=== PATIENT | female | born 1950 | race Caucasian/White ===

== ENCOUNTER 2017-11-03 16:56 | Emergency (ER) | payer MEDICARE, OTHER ==
[~2017-11-03] VITALS: Ht 167.6 cm; Wt 90.7 kg
[~2017-11-03 16:56] MED LIST: LEVAQUIN500 MG PO; PREDNISONE20 MG PO; SYNTHROID125 MCG PO; TUSSIN DM COUG120 ML
[2017-11-03] MEDS ORDERED: CEFTRIAXONE SOD 1 GM VIAL IM ONE (17:30)
[2017-11-03] MEDS ORDERED: DEXAMETHASONE SOD PHOS 10 MG/1 ML VIAL INJ ONE (17:30)
[2017-11-03 17:42] VITALS: BP 185/88
== END 2017-11-03 17:30 | disposition home or self-care (01) ==
LOC: FSED 16:56
DX: R50.9 Fever, unspecified (principal); R05 Cough; J20.9 Acute bronchitis, unspecified; J00 Acute nasopharyngitis [common cold]
CPT/HCPCS: 83518; 99282; J0696

== ENCOUNTER 2018-11-05 18:18 | Emergency (ER) | payer MEDICARE, OTHER ==
[~2018-11-05] VITALS: Ht 165.1 cm; Wt 129.3 kg
[2018-11-05] MEDS ORDERED: ALBUTEROL/IPRATROPIUM 3 ML NEB NEB ONE (19:30)
[2018-11-05] MEDS ORDERED: AZITHROMYCIN250 MG PO (19:33)
[2018-11-05] MEDS ORDERED: PROAIR HFA INH8.5 GM INH (19:42)
[2018-11-05] MEDS ORDERED: CHERATUSSIN AC118 ML PO (19:44)
[2018-11-05] MEDS ORDERED: DEXAMETHASONE SOD PHOS 10 MG/1 ML VIAL IM ONE (19:45)
== END 2018-11-05 20:04 | disposition home or self-care (01) ==
LOC: FSED 18:18
DX: R05 Cough (principal); J02.9 Acute pharyngitis, unspecified; J98.01 Acute bronchospasm; H69.93 Unspecified Eustachian tube disorder, bilateral
CPT/HCPCS: 99283; J1100

== ENCOUNTER 2018-11-12 10:22 | Emergency (ER) | payer MEDICARE, OTHER ==
[~2018-11-12] VITALS: Ht 165.1 cm; Wt 129.3 kg
[~2018-11-12 10:22] MED LIST changes: +AZITHROMYCIN250 MG PO; +CHERATUSSIN AC118 ML PO; +PROAIR HFA INH8.5 GM INH
[2018-11-12] MEDS ORDERED: SODIUM CHLORIDE 0.9% 1000ML 1,000 ML IV STA (11:05)
[2018-11-12] MEDS ORDERED: DIPHENHYDRAMINE HCL INJ 50 MG/ML VIAL IV ONE (11:15)
[2018-11-12] MEDS ORDERED: MECLIZINE HCL 12.5 MG TAB PO ONE (11:15)
--- NOTE | 2018-11-12 11:57 | Diagnostic Imaging Report ---
Examination: CT head without contrast Clinical Indication: Dizziness. Tinnitus. Unsteady gait. Technique: Transaxial noncontrast images from the skull base through the vertex were obtained. Sagittal and coronal reformatted images were done. Dose modulation, iterative reconstruction, and/or weight based adjustment of the mA/kV was utilized to reduce the radiation dose to as low as reasonably achievable. Comparison: None. Findings: Scalp: No abnormalities. Bones: Intact. No fractures. No blastic or lytic lesions. Brain sulci: Appropriate for patient's age. Ventricles: Normal in size and configuration. No hydrocephalus. Extra-axial space: No abnormalities. Parenchyma: No masses, hemorrhage, or acute or chronic cortical based vascular insults. Suprasellar region: No abnormalities. Craniocervical junction: The foramen magnum is patent. No Chiari one malformation. Incidental findings: Partially visualized retention cyst in the left maxillary sinus. Mild inflammatory mucosal thickening of the right sphenoid sinus. Evidence of prior bilateral ethmoidectomies. Impression: No acute intracranial abnormality. Signed by: Dr. Lashonda Mcfarland M.D. on 11/12/2018 11:54 AM
[2018-11-12] MEDS ORDERED: METOCLOPRAMIDE HCL 10 MG/2ML VIAL IV ONE (12:00)
--- NOTE | 2018-11-12 12:32 | Diagnostic Imaging Report ---
EXAMINATION: CHEST SINGLE (PORTABLE) INDICATION: Vertigo, tinnitus COMPARISON: Report from chest radiograph from 09/19/2015, however the images are not available for review. FINDINGS: TUBES and LINES: None. LUNGS: There is a nodular opacity which projects over the right upper lung. No evidence of pneumonia or pulmonary edema. PLEURA: No pleural effusion or pneumothorax. HEART AND MEDIASTINUM: The cardiomediastinal silhouette is unremarkable. BONES AND SOFT TISSUES: No acute osseous lesion. Soft tissues are unremarkable. UPPER ABDOMEN: No free air under the diaphragm. IMPRESSION: No acute radiographic abnormality. Nodular opacity, which projects over the right upper lung. This could be within the overlying rib, however pulmonary nodule cannot be excluded by radiograph. Chest CT is suggested for further evaluation. Signed by: Dr. Yasmeen Sky MD on 11/12/2018 12:29 PM
[2018-11-12 12:37] LABS: BASOPHILS # (AUTO) 0.1 (0.0-0.1); BASOPHILS % 0.5 % (0.0-1.0); EOSINOPHILS # (AUTO) 0.2 (0.0-0.4); EOSINOPHILS % 2.5 % (0.0-6.0); HEMATOCRIT 44.6 % (34.2-44.1); HEMOGLOBIN 14.6 g/dL (12.0-16.0); LYMPHOCYTES # (AUTO) 2.1 (1.0-3.2); LYMPHOCYTES % 21.2 % (18.0-39.1); MEAN CORPUSCULAR HEMOGLOBIN 29.3 pg (28-32); MEAN CORPUSCULAR HGB CONC 32.7 g/dL (31-35); MEAN CORPUSCULAR VOLUME 89.4 fL (81-99); MONOCYTES # (AUTO) 0.8 (0.2-0.8); MONOCYTES % 7.8 % (4.4-11.3); NEUTROPHILS # (AUTO) 6.6 (2.1-6.9); NEUTROPHILS % 67.6 % (38.7-80.0); PLATELET COUNT 274 x10e3/uL (140-360); RED BLOOD COUNT 4.99 x10e6/uL (3.6-5.1); RED CELL DISTRIBUTION WIDTH 12.7 % (11.7-14.4)
[2018-11-12 12:47] LABS: INR 0.96; PROTHROMBIN TIME 13.3 seconds (11.9-14.5)
[2018-11-12 12:48] LABS: PARTIAL THROMBOPLASTIN TIME 35.3 seconds (23.8-35.5)
[2018-11-12 13:37] LABS: ALANINE AMINOTRANSFERASE 41 IU/L (0-55); ALBUMIN 3.5 g/dL (3.5-5.0); ALKALINE PHOSPHATASE 83 IU/L (40-150); ANION GAP 10.6 mmol/L (8-16); BLOOD UREA NITROGEN 11 mg/dL (7-26); BUN/CREATININE RATIO 15 (6-25); CALCIUM 9.4 mg/dL (8.4-10.2); CARBON DIOXIDE 29 mmol/L (22-29); CHLORIDE 102 mmol/L (98-107); CREATINE KINASE 173 IU/L (29-168); CREATININE, SERUM 0.72 mg/dL (0.57-1.11); EST GLOMERULAR FILTRATION RATE > 60 ML/MIN (60-); GLUCOSE 119 mg/dL (74-118); POTASSIUM 4.6 mmol/L (3.5-5.1); SODIUM 137 mmol/L (136-145)
[2018-11-12] MEDS ORDERED: DEXAMETHASONE 10MG/ML PF INJ IV ONE (14:00)
--- NOTE | 2018-11-12 14:50 | NUR ---
pt states she feels better
[2018-11-12 16:35] VITALS: BP 154/77
--- NOTE | 2018-11-12 16:57 | NUR ---
PT D/C FROM ER BUT STAYED WITH FAMILY WHO IS ALSO BEING SEEN IN THE ER
== END 2018-11-12 16:57 | disposition home or self-care (01) ==
LOC: ER 10:22
DX: H81.11 Benign paroxysmal vertigo, right ear (principal); R51 Headache; J01.30 Acute sphenoidal sinusitis, unspecified
CPT/HCPCS: 36415; 70450; 71045; 80053; 82550; 82553; 84484; 85025; 85610; 85730; 93005; 99284; J1200; J2765; J7030; J8597

== ENCOUNTER 2018-11-24 15:50 | Emergency (ER) | payer MEDICARE, OTHER ==
[~2018-11-24] VITALS: Ht 165.1 cm; Wt 129.3 kg
--- OUTSIDE RECORDS SUMMARY | 2018-11-24 15:52 | XMS REPORT ---
Author [facility] Address Unknown Phone Unavailable Care Team Providers Care Jd Edwards Developer Name Role Phone GAEL Beti FREDERICK Unavailable Unavailable Problems This patient has no known problems. Allergies, Adverse Reactions, Alerts This patient has no known allergies or adverse reactions. Medications This patient has no known medications. Results Test Description Test Time Test Comments Text Results Atomic Results Result Comments CHEST SINGLE (PORTABLE) 2018-11-12 12:21:00 [place] [id number] Patient Name: TRACY JOHNSON MR #: [id number] : 1950 Age/Sex: 68/F Req #: [id number] Adm Physician: Ordered by: NUBIA YOU NP Report #: [id number] Location: ER Room/Bed: Procedure: [id number] DX/CHEST SINGLE (PORTABLE) Exam Date: 11/12/18 Exam Time: 1137 REPORT STATUS: Signed EXAMINATION: CHEST SINGLE (PORTABLE) I NDICATION: Vertigo, tinnitus COMPARISON: Report from chest radiograph from 09/19/2015, however the images are not available for review. FINDINGS: TUBES and LINES: None. LUNGS: There is a nodular opacity which projects over the right upper lung. No evidence of pneumonia or pulmonary edema. PLEURA: No pleural effusion or pneumothorax. HEART AND MEDIASTINUM: The cardiomediastinal silhouette is unremarkable. BONES AND SOFT TISSUES: No acute osseous lesion. Soft tissues are unremarkable. UPPER ABDOMEN: No free air under the diaphragm. IMPRESSION: No acute radiographic abnormality. Nodular opacity, which projects over the right upper lung. This could be within the overlying rib, however pulmonary nodule cannot be excluded by radiograph. Chest CT is suggested for further evaluation. Signed by: Dr. Lisa Perkins MD on 11/12/2018 12:29 PM Dictated By: LISA PERKINS MD 122 Transcribed By: SABINE on 11/12/181228 COPY TO: NUBIA YOU NP CT BRAIN WO 2018-11-12 11:53:00 [place] [id number] Patient Name: TRACY JOHNSON MR #: [id number] : 1950 Age/Sex: 68/F Req #: [id number] Adm Physician: Ordered by: NUBIA YOU CHANGE ATTENDANT Report #: [id number] Location: ER Room/Bed: Procedure: [id number] CT/CT BRAIN WO Exam Date: 11/12/18 Exam Time: 1130 REPORT STATUS: Signed Examination: CT head without contrast Clinical Indication: Dizziness. Tinnitus. Unsteady gait. Technique: Transaxial noncontrast images from the skull base through the vertex were obtained. Sagittal and coronal reformatted images were done. Dose modulation, iterative reconstruction, and/or weight based adjustment of the mA/kV was utilized to reduce the radiation dose to as low as reasonably achievable. Comparison: None. Findings: Scalp: No abnormalities. Bones: Intact. No fractures. No blastic or lytic lesions. Brain sulci: Appropriate for patient's age. Ventricles: Normal in size and configuration. No hydrocephalus. Extra- axial space: No abnormalities. Parenchyma: No masses, hemorrhage, or acute or chronic cortical based vascular insults. Suprasellar region: No abnormalities. Craniocervical junction: The foramen magnum is patent. No Chiari one malformation. Incidental findings: Partially visualized retention cyst in the left maxillary sinus. Mild inflammatory mucosal thickening of the right sphenoid sinus. Evidence of prior bilateral ethmoidectomies. Impression: No acute intracranial abnormality. Signed by: Dr. Lashonda Mcfarland M.D. on 11/12/2018 11:54 AM Dictated By: LASHONDA KRISHNA MD 1152 Transcribed By: SABINE on 11/12/18 115 COPY TO: NUBIA YOU NP
== END 2018-11-24 16:37 | disposition home or self-care (01) ==
LOC: FSED 15:50
DX: R42 Dizziness and giddiness (principal); H81.11 Benign paroxysmal vertigo, right ear; J01.00 Acute maxillary sinusitis, unspecified
CPT/HCPCS: 99283

== ENCOUNTER 2019-02-19 19:38 | Emergency (ER) | payer MEDICARE, OTHER ==
[~2019-02-19] VITALS: Ht 167.6 cm; Wt 114.8 kg
[2019-02-19] MEDS ORDERED: CLINDAMYCIN PHOS 600 MG/ 4 ML VIAL IM ONE (20:30)
[2019-02-19] MEDS ORDERED: CLINDAMYCIN PHOS 600 MG/ 4 ML VIAL ONE (20:32)
--- NOTE | 2019-02-19 20:47 | Diagnostic Imaging Report ---
Foot complete CPT code: 55168 Indication: Injury with bleeding ^[id number] ^2019 Technique: A.P., oblique and lateral views of the left foot obtained. Comparison: None Findings: The area of injury is at the great toe. The bones are diffusely demineralized. Calcaneus is intact with small plantar posterior spurs. The midfoot is intact with mild degenerative changes. The metatarsals are intact. There are mild degenerative changes of the MTPs of digits 1 through 4. The great toe appears to have a nondisplaced fracture through the base of the distal phalanx, lateral aspect with extension to the IP joint. The remainder of the toe is intact. No joint dislocation. No periosteal new bone formation. No radiopaque foreign bodies in the soft tissues. IMPRESSION: Suspected nondisplaced fracture through the base of the distal phalanx of the first digit with extension to the IP joint. Toenail injury cannot be excluded. Recommend correlation with clinical exam findings. Signed by: Dr. Brandy Eaton MD on 02/19/2019 8:43 PM
== END 2019-02-19 20:57 | disposition home or self-care (01) ==
LOC: FSED 19:38
DX: L03.032 Cellulitis of left toe (principal); S90.112A Contusion of left great toe without damage to nail, initial encounter; W22.03XA Walked into furniture, initial encounter; Y92.008 Other place in unspecified non-institutional (private) residence as the place of occurrence of the external cause
CPT/HCPCS: 99283

== ENCOUNTER → 2020-11-23 | Outpatient (CLI) | payer MEDICARE, OTHER | LOC: MAMMO 13:09 | PROVIDERS: ATTEND Specialist | DX: Z12.31 Encounter for screening mammogram for malignant neoplasm of breast (principal); Z13.820 Encounter for screening for osteoporosis; Z78.0 Asymptomatic menopausal state | CPT/HCPCS: 77067; 77080 ==

== ENCOUNTER 2020-12-27 10:28 | Emergency (ER) | payer MEDICARE, OTHER ==
[~2020-12-27] VITALS: Ht 167.6 cm; Wt 128.4 kg
[2020-12-27] MEDS ORDERED: HYDRALAZINE HCL 20 MG/ML VIAL IV ONE (11:00)
[2020-12-27] MEDS ORDERED: HYDRALAZINE HCL 20 MG/ML VIAL ONE (11:08)
[2020-12-27] MEDS ORDERED: CLONIDINE HCL 0.1 MG TAB ONE (12:08)
[2020-12-27] MEDS ORDERED: CLONIDINE HCL 0.2 MG TAB PO ONE (12:15)
[2020-12-27 12:43] VITALS: BP 143/64
== END 2020-12-27 12:46 | disposition home or self-care (01) ==
LOC: FSED 11:00
DX: I10 Essential (primary) hypertension (principal); E03.9 Hypothyroidism, unspecified; E66.01 Morbid (severe) obesity due to excess calories
CPT/HCPCS: 70450; 80053; 82553; 84484; 85025; 99284; J0360

== ENCOUNTER → 2022-04-28 | Outpatient (CLI) | payer MEDICARE, OTHER | LOC: DX 08:58 | PROVIDERS: ATTEND Specialist | DX: Z12.31 Encounter for screening mammogram for malignant neoplasm of breast (principal); M85.88 Other specified disorders of bone density and structure, other site | CPT/HCPCS: 77067; 77080 ==